=== PATIENT | male | born 1970 | race Caucasian/White ===

== ENCOUNTER 2018-11-05 13:37 | Observation (INO) | payer OTHER ==
[~2018-11-05] VITALS: Ht 160 cm; Wt 78.9 kg
[~2018-11-05 13:37] MED LIST: METFORMIN PO
[2018-11-05 13:43] VITALS: BP 133/83
--- NOTE | 2018-11-05 13:57 | NUR ---
PER ER PT OKAY TO WAIT IN LOBBY, WILL GET REPEAT EKG IN 30 MIN.
[2018-11-05 14:23] LABS: BASOPHILS % (AUTO) 0.2 % (0.0-2.0); EOSINOPHILS # (AUTO) 0.1 K/uL (0-0.4); EOSINOPHILS % (AUTO) 1.1 % (0.0-4.0); HEMATOCRIT 40.3 % (36-52); HEMOGLOBIN 13.6 g/dL (12.0-18.0); LYMPHOCYTES # (AUTO) 2.1 K/uL (2.0-11.5); LYMPHOCYTES % (AUTO) 43.1 % (20.5-51.1); MEAN CORPUSCULAR HEMOGLOBIN 30 pg (27-31); MEAN CORPUSCULAR HGB CONC 34 g/dL (33-37); MEAN CORPUSCULAR VOLUME 87.6 fL (80-94); MONOCYTES # (AUTO) 0.2 K/uL (0.8-1.0); NEUTROPHILS # (AUTO) 2.5 K/uL (1.8-7.7); NEUTROPHILS % (AUTO) 50.6 % (42.2-75.2); PLATELET COUNT (AUTO) 175 K/uL (140-450); RED CELL DISTRIBUTION WIDTH 13.3 % (11.6-13.7)
[2018-11-05 14:41] LABS: ANION GAP 12.4 (8-16); CARBON DIOXIDE 26.5 mmol/L (21-32); CREATININE 0.9 mg/dL (0.7-1.3); POTASSIUM 3.9 mmol/L (3.5-5.1)
[2018-11-05 14:46] LABS: ALBUMIN 3.9 g/dL (3.4-5.0); TOTAL BILIRUBIN 1.1 mg/dL (0.0-1.0)
--- NOTE | 2018-11-05 16:09 | NUR ---
PT VSS. PT REPORTS 8/10 PAIN IN RT CHEST THAT INCREASES W/ BREATHING. LUNG SOUNDS CLEAR, RR EVEN AND NON-LABORED, CAP REFIL < 2 SEC, RADIAL PULSES EQUAL 2+, NO EDEMA, NO JUGULAR VEIN DISTENTION.
--- NOTE | 2018-11-05 16:31 | NUR ---
C/O RT SIDED CP X3 DAYS. PAIN GETTING WORSE IN THE LAST 3 DAYS BUT STATES "I FEEL OKAY NOW". PAIN IS NON-RADIATING, CONSTANT, AND PLEURITIC. DENIES TRAUMA, SOB, N/V, DIAPHORESIS. VSS AT THIS TIME. MEDHX:DM, HLD, HTN RX:ASPIRIN, LISINOPRIL, PIOGLITAZONE, METFORMIN, ATROVASTATIN
--- NOTE | 2018-11-05 17:23 | NUR ---
DR. PADGETT EVALUATING PT AT BEDSIDE
[2018-11-05] MEDS ORDERED: KETOROLAC 15 MG/ML VIAL IVP ONE (17:30)
[2018-11-05] MEDS ORDERED: ASPIRIN 81 MG TAB.CHEW PO ONE (17:35)
--- NOTE | 2018-11-05 18:10 | NUR ---
DR. PADGETT SPEAKING WITH PT AT BEDSIDE.
[2018-11-05] MEDS ORDERED: DEXTROSE 50% 50 ML SYR IVP PRN (18:20)
[2018-11-05] MEDS ORDERED: ACETAMINOPHEN 325 MG TAB PO PRN (18:25)
[2018-11-05] MEDS ORDERED: ONDANSETRON 4 MG/2 ML VIAL IVP PRN (18:25)
[2018-11-05] MEDS ORDERED: HYDROcodone/APAP 5/325 MG 1 TAB TAB PO PRN (18:25)
[2018-11-05] MEDS ORDERED: MORPHINE SULFATE 4 MG/ML SYR IVP PRN (18:25)
[2018-11-05] MEDS ORDERED: PIOG30TA PO (18:33)
[2018-11-05] MEDS ORDERED: LISI2.5T12 PO (18:33)
[2018-11-05] MEDS ORDERED: METF850T PO (18:33)
[2018-11-05] MEDS ORDERED: ASPI-1173 PO (18:33)
[2018-11-05] MEDS ORDERED: ATOR20TA PO (18:33)
[2018-11-05] MEDS ORDERED: METF1TAB34 PO (18:33)
--- NOTE | 2018-11-05 19:25 | NUR ---
Patient will be admitted to care of DR. JIMENEZ. Admited to TELE 120A. Will go to [id number]. Belongings list completed. Report to TORIN BAE. VSS
[2018-11-05 19:30] VITALS: BP 110/72
--- NOTE | 2018-11-05 19:30 | NUR ---
RECEIVED PT FROM ER NURSE VIA KATIA REPORT GIVEN AT BEDSIDE PT IA AAOX4 [place] [employer] AMBULATORY, ON TELEMETRY SR, HL ON LEFT AC GAUGE # 20 patent, skin is intact DENIES ANY PAIN ON ADMISSION PAIN MEDIC WAS GIVEN IN ER, , MRSA NARES PROTOCOL TAKEN AND SENT TO LAB, PT IS ORIENTED TO THE FLOOR CALL LIGHT WITHIN REACH. INITIAL ASSESSMENT DONE
[2018-11-05] MEDS: BLOOD GLUCOSE MONITORING 1 DEV DEV FS SCH (20:45)
[2018-11-05] MEDS: INSULIN LISPRO SLIDING SCALE 100 UNITS/ML VIAL SUBQ PRN (20:47)
--- NOTE | 2018-11-05 21:30 | NUR ---
BLOOD SUGAR TEST 178 COVERAGE WITH2 UNITS SUBQ MIKHAIL FOLLOW PROTOCOL AND PT IS PROVIDED WITH HIS DINNER DENIES ANY CHEST PAIN
[2018-11-06] VITALS: BP 106/59
--- NOTE | 2018-11-06 | NUR ---
PT DENIES ANY CHEST PAIN ON TELEMETRY SR, PT GETTING SLEEP
--- NOTE | 2018-11-06 03:00 | NUR ---
SPONGE BATH GIVEN LINEN CHANGED ON TELE SR REMAIN STABLE
[2018-11-06 04:00] VITALS: BP 98/64
--- NOTE | 2018-11-06 04:00 | NUR ---
PT HAS BEEN MONITORING CLOSE , VOIDING WELL , DENIES ANY CHEST PAIN , SLEEPING WELL ON TELMETRY SR
--- NOTE | 2018-11-06 05:00 | NUR ---
SPONGE BATH GIVEN LINEN CHANGED PT REMAIN STABLE ON TELMETRY SR DENIES ANY ZANE
[2018-11-06] MEDS: BLOOD GLUCOSE MONITORING 1 DEV DEV FS SCH (05:53)
[2018-11-06] MEDS: INSULIN LISPRO SLIDING SCALE 100 UNITS/ML VIAL SUBQ PRN (05:54)
--- NOTE | 2018-11-06 06:41 | NUR ---
BLOOD SUGAR TEST 174 COVERAGE WITH 2 UNIS HUMALOG SUBQ FOLLOW PROTOCOL, REMAIN STBLE
--- NOTE | 2018-11-06 06:42 | NUR ---
PT WILL BE ENDORSED TO DAY SHIFT NURSE FOR CONTINUE OF CARE
--- NOTE | 2018-11-06 07:05 | NUR ---
RECEIVED BEDSIDE REPORT FROM PANELBOARD OPERATOR, KATHIA. PATIENT RESTING IN BED, NO SIGNS OF DISTRESS ON RA. NO C/O PAIN, SALINE LOCK 20 GAUGE IV CATHETER IN LEFT FORE ARM. UPDATED PATIENT ON PLAN OF CARE, PATIENT VERBALIZED UNDERSTANDING. BED IS LOW, CALL LIGHT IN REACH. WILL CONTINUE TO MONITOR.
[2018-11-06 07:39] LABS: ANION GAP 11.9 (8-16); CARBON DIOXIDE 27.9 mmol/L (21-32); CREATININE 0.9 mg/dL (0.7-1.3); POTASSIUM 3.8 mmol/L (3.5-5.1)
[2018-11-06 07:41] LABS: MAGNESIUM 1.9 mg/dL (1.8-2.4); PHOSPHORUS 4.2 mg/dL (2.5-4.9)
[2018-11-06 07:46] LABS: BASOPHILS % (AUTO) 0.1 % (0.0-2.0); EOSINOPHILS # (AUTO) 0.1 K/uL (0-0.4); EOSINOPHILS % (AUTO) 1.7 % (0.0-4.0); HEMATOCRIT 39.2 % (36-52); HEMOGLOBIN 13.4 g/dL (12.0-18.0); LYMPHOCYTES # (AUTO) 2.3 K/uL (2.0-11.5); LYMPHOCYTES % (AUTO) 42.3 % (20.5-51.1); MEAN CORPUSCULAR HEMOGLOBIN 30 pg (27-31); MEAN CORPUSCULAR HGB CONC 34 g/dL (33-37); MEAN CORPUSCULAR VOLUME 87.6 fL (80-94); MONOCYTES # (AUTO) 0.3 K/uL (0.8-1.0); MONOCYTES % (AUTO) 5.5 % (1.7-9.3); NEUTROPHILS # (AUTO) 2.8 K/uL (1.8-7.7); NEUTROPHILS % (AUTO) 50.4 % (42.2-75.2); PLATELET COUNT (AUTO) 165 K/uL (140-450); RED BLOOD CELL COUNT(AUTO) 4.47 MIL/uL (4.20-6.10); RED CELL DISTRIBUTION WIDTH 13.2 % (11.6-13.7); WHITE BLOOD COUNT (AUTO) 5.5 K/uL (4.8-10.8)
[2018-11-06 08:00] VITALS: BP 105/59
--- NOTE | 2018-11-06 08:34 | NUR ---
PATIENT HAS BEEN SCREENED AND CATEGORIZED LOW NUTRITION RISK. PATIENT WILL BE SEEN WITHIN 7 DAYS OF ADMISSION. 11/12/[address]
[2018-11-06] MEDS ORDERED: ASPIRIN 81 MG TAB.CHEW PO SCH (09:00)
--- NOTE | 2018-11-06 09:04 | NUR ---
ADMINISTERED SCHEDULED MEDICATIONS, PATIENT TOLERATED WELL. VITALS SIGNS STABLE. 20 GAUGE IN LEFT FOREARM IS FLUSHING WELL, NO DISTRESS ON RA, BED IN LOW POSITION, CALL LIGHT IN REACH
[2018-11-06 10:20] VITALS: BP 105/59
--- NOTE | 2018-11-06 11:30 | NUR ---
PATIENT DISCHARGED HOME ACCOMPANIED BY HIS . 20 GAUGE IV CATHETER REMOVED FROM LEFT FOREARM, TIP INTACT. PATIENT TOLERATED WELL. EDUCATED PATIENT ON MEDICATIONS TO CONTINUE, SIGNS AND SYMPTOMS FOR WHICH TO RETURN, AND FOLLOW UP APPOINTMENT TO BE MADE WITH PRIMARY CARE PROVIDER. PATIENT AND VERBALIZED UNDERSTANDING. PATIENT DENIED SMOKING CESSATION INFORMATION STATING THAT "I ONLY SMOKE 2-3 CIGARETTES A MONTH." PATIENT DRESSED SELF IN STREET CLOTHES, WRIST BANDS WERE REMOVED, AND PATIENT WAS ESCORTED TO HOSPITAL LOBBY. PATIENT AMBULATED WITH STEADY GAIT AND NO SIGNS OF DISTRESS ON RA. NO C/O PAIN.
[2018-11-06] MEDS ORDERED: metFORMIN 850 MG TAB PO SCH (13:00)
[2018-11-06] MEDS ORDERED: ATORVASTATIN 20 MG TAB PO SCH (21:00)
[2018-11-07] MEDS ORDERED: LISINOPRIL 5 MG TAB PO SCH (09:00)
[2018-11-07] MEDS ORDERED: ECOTRIN 81 MG TABEC PO SCH (09:00)
[2018-11-07] MEDS ORDERED: ASPIRIN PO SCH (09:00)
[2018-11-07] MEDS ORDERED: PIOGLITAZONE 30 MG TAB PO SCH (09:00)
--- NOTE | 2018-11-08 10:08 | NUR ---
CONTACTED PATIENT'S PCP DR. CHRISTOPHER HIDALGO'S OFFICE REGARDING POST DISCHARGE APPOINTMENT. OFFICE IS CLOSED, WILL FOLLOW. CONTACTED PATIENT AT [phone], MADE HIM AWARE THAT I WAS NOT ABLE TO GET AN APPOINTMENT YET AND WILL FOLLOW UP TOMORROW, ABLE TO VERBALIZE UNDERSTANDING.
--- NOTE | 2018-11-09 10:41 | NUR ---
CONTACTED PATIENT'S PCP DR. CHRISTOPHER HIDALGO'S OFFICE AT [phone], ABLE TO SPEAK TO HEBER. SHE PROVIDED ME WITH NOV 10, 2018 AT 1100 AM. CONTACTED PATIENT AT [phone] AND MADE HIM AWARE OF HIS APPOINTMENT. INSTRUCTED HIM WELL TO BRING THE DC PACKET PROVIDED TO HIM, ABLE TO VERBALIZE UNDERSTANDING.
== END 2018-11-06 11:30 | disposition home or self-care (01) ==
LOC: MED 13:37 → INTOOBSV 18:21 → MTU 18:21
PROVIDERS: ADMIT Internal Medicine Pulmonary Disease; ATTEND Internal Medicine Pulmonary Disease
DX: R07.89 Other chest pain (principal); R09.1 Pleurisy; E11.9 Type 2 diabetes mellitus without complications; E78.5 Hyperlipidemia, unspecified; F17.210 Nicotine dependence, cigarettes, uncomplicated
CPT/HCPCS: 36415; 71045; 80048; 80053; 82948; 83036; 83735; 84100; 84484; 85025; 87081; 93005; 96374; 99285; G0378; J1815; J1885; 96372

== ENCOUNTER 2023-01-12 20:39 | Emergency (ER) | payer OTHER ==
[~2023-01-12] VITALS: Ht 165.1 cm; Wt 79.4 kg
[~2023-01-12 20:39] MED LIST changes: +ASPI-1856 PO; +ATOR20TA PO; +LISI2.5T12 PO; +METF-713 PO; -METFORMIN PO; +PIOG30TA PO
[2023-01-12 21:14] VITALS: BP 127/77; PULSE 90; RESP 18; TEMP 98.1; O2SAT 95
[2023-01-12] MEDS ORDERED: KETOROLAC 30 MG/ML VIAL IM ONE (22:15)
[2023-01-12] MEDS ORDERED: IBUP-2213 PO (23:04)
[2023-01-12] MEDS ORDERED: CAPS1ADH5 TP (23:04)
[2023-01-12 23:42] VITALS: BP 127/77; PULSE 90; RESP 18; TEMP 98.1; O2SAT 95
== END 2023-01-12 23:43 | disposition home or self-care (01) ==
LOC: MED 20:39
DX: S39.012A Strain of muscle, fascia and tendon of lower back, initial encounter (principal); M43.16 Spondylolisthesis, lumbar region; E11.9 Type 2 diabetes mellitus without complications; Z79.4 Long term (current) use of insulin; Z79.899 Other long term (current) drug therapy; V49.88XA Car occupant (driver) (passenger) injured in other specified transport accidents, initial encounter; Y93.89 Activity, other specified; Y92.89 Other specified places as the place of occurrence of the external cause; Y99.8 Other external cause status
CPT/HCPCS: 72100; 96372; 99283; J1885

== ENCOUNTER 2023-01-29 12:45 | Emergency (ER) | payer OTHER ==
[~2023-01-29] VITALS: Ht 160 cm; Wt 76.3 kg
[~2023-01-29 12:45] MED LIST changes: +CAPS1ADH5 TP; +IBUP-2213 PO
[2023-01-29 13:11] VITALS: BP 107/72; PULSE 83; RESP 18; TEMP 98.1; O2SAT 98
[2023-01-29] MEDS ORDERED: KETOROLAC 30 MG/ML VIAL IVP ONE (13:50)
[2023-01-29 14:32] LABS: BASOPHILS % (AUTO) 0.2 % (0.0-2.0); EOSINOPHILS % (AUTO) 0.6 % (0.0-4.0); HEMATOCRIT 41.5 % (36-52); HEMOGLOBIN 14.1 g/dL (12.0-18.0); LYMPHOCYTES # (AUTO) 1.3 K/uL (2.0-11.5); LYMPHOCYTES % (AUTO) 21.3 % (20.5-51.1); MEAN CORPUSCULAR HEMOGLOBIN 30 pg (27-31); MEAN CORPUSCULAR HGB CONC 34 g/dL (33-37); MONOCYTES # (AUTO) 0.4 K/uL (0.8-1.0); MONOCYTES % (AUTO) 6.2 % (1.7-9.3); NEUTROPHILS # (AUTO) 4.5 K/uL (1.8-7.7); NEUTROPHILS % (AUTO) 71.7 % (42.2-75.2); PLATELET COUNT (AUTO) 163 K/uL (140-450); RED BLOOD CELL COUNT(AUTO) 4.72 MIL/uL (4.20-6.10); RED CELL DISTRIBUTION WIDTH 13.2 % (11.6-13.7); WHITE BLOOD COUNT (AUTO) 6.2 K/uL (4.8-10.8)
[2023-01-29 14:41] LABS: ALANINE AMINOTRANSFERASE 34 U/L (12-78); ALBUMIN 4.1 g/dL (3.4-5.0); ALKALINE PHOSPHATASE 156 U/L (50-136); ANION GAP 13.3 (8-16); ASPARTATE AMINOTRANSFERASE 20 U/L (15-37); CALCIUM 8.5 mg/dL (8.5-10.1); CARBON DIOXIDE 27.8 mmol/L (21-32); CHLORIDE 101 mmol/L (98-107); CREATININE 1.1 mg/dL (0.6-1.3); GFR ARICAN-AMERICAN 91 mL/min (>90); GFR NON ARICAN-AMERICAN 75 mL/min (>90); LIPASE 42 U/L (16-77); POTASSIUM 4.1 mmol/L (3.5-5.1); SODIUM SERUM 138 mmol/L (136-145); TOTAL BILIRUBIN 1.5 mg/dL (0.0-1.0); TOTAL PROTEIN, SERUM 7.1 g/dL (6.4-8.2); UREA NITROGEN, BLOOD 13 mg/dL (7-18)
[2023-01-29 14:50] LABS: GLUCOSE 455 mg/dL (74-106)
[2023-01-29] MEDS ORDERED: NACL 0.9% 1,000 ML IV ONE (15:05)
[2023-01-29] MEDS ORDERED: HYDROcodone/APAP 5/325 MG 1 TAB TAB PO ONE (16:00)
[2023-01-29 16:03] LABS: APPEARANCE,URINE CLEAR (CLEAR); BILIRUBIN,URINE NEGATIVE (NEGATIVE); BLOOD, URINE NEGATIVE (NEGATIVE); COLOR,URINE YELLOW (YELLOW); LEUKOCYTE ESTERASE ,URINE NEGATIVE (NEGATIVE); NITRITE, URINE NEGATIVE (NEGATIVE); PROTEIN,URINE NEGATIVE (NEGATIVE); UGLUCOSE 3+ (NEGATIVE); UROBILINOGEN,URINE 0.2 EU/dL (0.2 - 1)
[2023-01-29] MEDS ORDERED: ACET-8905 PO (16:20)
[2023-01-29] MEDS ORDERED: NAPR-54 PO (16:20)
[2023-01-29 16:54] VITALS: BP 134/88; PULSE 85; RESP 19; TEMP 98.1; O2SAT 99
== END 2023-01-29 16:56 | disposition home or self-care (01) ==
LOC: MED 12:45
DX: D35.02 Benign neoplasm of left adrenal gland (principal); N43.3 Hydrocele, unspecified; E11.65 Type 2 diabetes mellitus with hyperglycemia; R03.0 Elevated blood-pressure reading, without diagnosis of hypertension; Z79.4 Long term (current) use of insulin; Z79.899 Other long term (current) drug therapy; Z88.0 Allergy status to penicillin
CPT/HCPCS: 36415; 71045; 74176; 76870; 80053; 81003; 82948; 83690; 84484; 85025; 93005; 96361; 96374; 99285; J1885; J7030; Q0092